=== PATIENT | male | born 1975 | race Caucasian/White ===

== ENCOUNTER → 2018-12-21 | Outpatient (CLI) | payer OTHER | END | disposition home or self-care (01) | LOC: LAB SHORT 08:50 → LAB SRC 08:50 | DX: Z51.81 Encounter for therapeutic drug level monitoring (principal); F11.20 Opioid dependence, uncomplicated; Z79.899 Other long term (current) drug therapy | CPT/HCPCS: G0480 ==

== ENCOUNTER → 2018-12-28 | Outpatient (CLI) | payer OTHER | END | disposition home or self-care (01) | LOC: LAB SRC 07:40 → LAB SHORT 07:40 | DX: Z51.81 Encounter for therapeutic drug level monitoring (principal); Z79.899 Other long term (current) drug therapy | CPT/HCPCS: G0480 ==

== ENCOUNTER → 2019-01-10 | Outpatient (CLI) | payer OTHER | END | disposition home or self-care (01) | LOC: LAB SHORT 17:39 → LAB 17:39 | DX: Z51.81 Encounter for therapeutic drug level monitoring (principal); F11.20 Opioid dependence, uncomplicated; Z79.899 Other long term (current) drug therapy | CPT/HCPCS: G0480 ==